=== PATIENT | female | born 1975 | race Caucasian/White ===

== ENCOUNTER → 2024-07-06 | Outpatient (CLI) | payer OTHER ==
[~2024-07-06] MED LIST: ALLE24TA7 PO; DOXY20TA6; ESTE1TAB4 PO; ESTR625TA; ESTR62CR PV; FLUC150T9; MULTIZYME; NOXI1TAB PO; OPTI0.5D2 OP; PROSYNBIOTIC; SLOW160T12 PO; THYTROPHIN PMG; VALA1TAB5; ZYRTTAB8 PO
[2024-07-06 17:24] LABS: BASO % 0.7 % (0.0-1.0); HEMATOCRIT 44.3 % (36.0-47.0); HEMOGLOBIN 14.9 g/dl (12.0-15.5); LYMPH # 1.6 10^3/uL (1.5-5.0); MEAN CORPUSCULAR HEMOGLOBIN 32.1 pg (27.0-33.0); MEAN CORPUSCULAR HGB CONC 33.6 g/dl (32.0-36.5); MEAN CORPUSCULAR VOLUME 95.5 fl (80.0-96.0); MONO # 0.3 10^3/uL (0.0-0.8); MONO % 7.7 % (2.0-8.0); NEUTROPHILS % 50.4 % (36.0-66.0); PLATELET COUNT, AUTOMATED 235 10^3/uL (150-450); RED BLOOD COUNT 4.64 10^6/uL (4.00-5.40)
[2024-07-06 17:49] LABS: ALBUMIN 4.1 G/DL (3.2-5.2); ALKALINE PHOSPHATASE 50 U/L (46-116); ALT/SGPT 20 U/L (7.0-40); AST/SGOT 11 U/L (<34); BILIRUBIN,TOTAL 0.3 MG/DL (0.3-1.2); BLOOD UREA NITROGEN 28 MG/DL (9-23); CALCIUM LEVEL 9.6 MG/DL (8.5-10.1); CARBON DIOXIDE LEVEL 32 MMOL/L (20-31); CHLORIDE LEVEL 105 MMOL/L (98-107); CREATININE FOR GFR 0.81 MG/DL (0.55-1.30); GLOMERULAR FILTRATION RATE > 60.0 (>58); GLUCOSE, FASTING 76 MG/DL (60-100); SODIUM LEVEL 136 MMOL/L (136-145)
[2024-07-06 17:50] LABS: FOLATE > 24.0 NG/ML (>5.4); FREE T3 2.9 PG/ML (2.3-4.2); THYROID STIMULATING HORMONE 3.228 uIU/ML (0.55-4.78)
[2024-07-06 17:51] LABS: FREE T4 1.14 NG/DL (0.89-1.76); TOTAL 25(OH) VITAMIN D 50.3 NG/ML (20.0-100.0); VITAMIN B12 LEVEL 1063 PG/ML (211-911)
== END ==
LOC: M LAB 16:34
PROVIDERS: ATTEND Internal Medicine Hematology & Oncology
DX: D70.9 Neutropenia, unspecified (principal)